=== PATIENT | female | born 2000 | race American Indian/Alaskan Native ===

== ENCOUNTER 2022-09-20 21:43 | Emergency (ER) | payer MEDICAID ==
[~2022-09-20] VITALS: Ht 177.8 cm; Wt 77.1 kg
[2022-09-20] MEDS ORDERED: ALBUTEROL SULFATE 0.083% 2.5 MG/3 ML VIAL.NEB INH ONE (22:00)
[2022-09-20] MEDS ORDERED: DEXAMETHASONE SOD PHOSPHATE 10 MG/ML VIAL IM ONE (22:00)
[2022-09-20 22:15] VITALS: BP_SYST 122
--- NOTE | 2022-09-20 22:15 | NUR ---
Patient triaged and placed in ED rm 6. Placed on monitor. VSS. MD Vela notified of need for MSE. Report given to BRADLEY Carroll.
[2022-09-20] MEDS ORDERED: ALBMDI INH (22:38)
[2022-09-20] MEDS ORDERED: PRED20TA PO (22:38)
--- NOTE | 2022-09-20 22:50 | NUR ---
First contact. NOtified by physician that patient is ready for discharge. Pt admits to having sore throat.
[2022-09-20 22:59] VITALS: BP_SYST 121
--- NOTE | 2022-09-20 22:59 | NUR ---
Patient given written and verbal discharge instructions and verbalizes understanding. ER MD discussed with patient the results and treatment provided. Patient in stable condition. ID arm band removed. Rx of Albuterol MDI & Prednisone given. Patient educated on pain management and to follow up with PMD. Opportunity for questions provided and answered.
== END 2022-09-20 22:59 | disposition home or self-care (01) ==
LOC: SED 21:43
DX: J04.0 Acute laryngitis (principal); R05.9 Cough, unspecified; R06.02 Shortness of breath; J02.9 Acute pharyngitis, unspecified; Z79.899 Other long term (current) drug therapy
CPT/HCPCS: 94640; 99283; J7613